=== PATIENT | male | born 1990 | race Caucasian/White ===

== ENCOUNTER 2019-09-19 18:38 | Emergency (ER) | payer BC ==
[~2019-09-19] VITALS: Ht 177.8 cm; Wt 111.0 kg
[2019-09-19 18:51] VITALS: BP 151/83
[2019-09-19] MEDS ORDERED: LIDOCAINE 1% PF 2 ML VIAL. INJ ONE (19:15)
[2019-09-19] MEDS ORDERED: AMOX1TAB61 PO (19:53)
--- NOTE | 2019-09-19 19:58 | PHYS DOC ---
Past Medical History Past Medical History: No Pertinent History Past Surgical History: No Surgical History Smoking Status: Never Smoker Alcohol Use: None General Adult EDM: Chief Complaint: ANIMAL BITE HPI: HPI: Patient is a 28 year old male presents for evaluation of dog bite to the face. Prior to arrival patient was playing with his friends stephanie in a pool. Bite was accidental unprovoked. Patient has laceration 1 cm above the upper lip and 2 cm below the lower lip both lacerations involve the lip. Patient states his tetanus is up-to-date. Patient states dogs immunizations are up-to-date. Review of Systems: Review of Systems: Constitutional: Denies fever or chills. [] Eyes: Denies change in visual acuity. [] HENT: Denies nasal congestion or sore throat. [] Respiratory: Denies cough or shortness of breath. [] Cardiovascular: Denies chest pain or edema. [] GI: Denies abdominal pain, nausea, vomiting, bloody stools or diarrhea. [] : Denies dysuria. [] Musculoskeletal: Denies back pain or joint pain. [] Integument: Positive laceration Neurologic: Denies headache, focal weakness or sensory changes. [] Endocrine: Denies polyuria or polydipsia. [] Lymphatic: Denies swollen glands. [] Psychiatric: Denies depression or anxiety. [] Heart Score: Risk Factors: Risk Factors: DM, Current or recent (<one month) smoker, HTN, HLP, family history of CAD, obesity. Risk Scores: Score 0 - 3: 2.5% MACE over next 6 weeks - Discharge Home Score 4 - 6: 20.3% MACE over next 6 weeks - Admit for Clinical Observation Score 7 - 10: 72.7% MACE over next 6 weeks - Early Invasive Strategies Current Medications: Current Medications Medications (Trade) Dose Ordered Sig/[place] Start Time Stop Time Status Last Admin Dose Admin Lidocaine HCl (Xylocaine-Mpf 1% 2ml Vial) 2 ml 1X ONCE 09/19/19 19:15 09/19/19 19:16 DC 09/19/19 19:18 2 ML Allergies: Allergies: Allergies Coded Allergies Type Severity Reaction Last Updated Verified No Known Drug Allergies 09/19/19 No Physical Exam: PE: Constitutional: Well developed, well nourished, no acute distress, non-toxic a ppearance. [] HENT: Normocephalic, atraumatic, bilateral external ears normal, oropharynx moist, no oral exudates, nose normal. [] Eyes: PERRLA, EOMI, conjunctiva normal, no discharge. [] Neck: Normal range of motion, no tenderness, supple, no stridor. [] Cardiovascular:Heart rate regular rhythm, no murmur [] Lungs & Thorax: Bilateral breath sounds clear to auscultation [] Abdomen: Bowel sounds normal, soft, no tenderness, no masses, no pulsatile masses. [] Skin: 1 cm laceration through and above the upper lip right of midline 2 cm laceration through and below the lip along the midline Back: No tenderness, no CVA tenderness. [] Extremities: No tenderness, no cyanosis, no clubbing, ROM intact, no edema. [] Neurologic: Alert and oriented X 3, normal motor function, normal sensory function, no focal deficits noted. [] Psychologic: Affect normal, judgement normal, mood normal. [] Current Patient Data: Vital Signs: Vital Signs Date Time Temp Pulse Resp B/P (MAP) Pulse Ox O2 Delivery O2 Flow Rate FiO2 09/19/19 18:51 98.6 84 16 151/83 (105) 97 Room Air 98.6 EKG: EKG: [] Radiology/Procedures: Radiology/Procedures: [] Course & Med Decision Making: Course & Med Decision Making Pertinent Labs and Imaging studies reviewed. (See chart for details) [] Due to the location of the laceration involving the lip and face gaping wound I discussed with the patient repair versus leaving wounds open. Laceration repair lidocaine 1% approximately 15 cc used for local anesthesia. Once anesthesia was achieved. Wound was cleaned with normal saline and Betadine. Both wounds were explored to a bloodless field no foreign bodies identified. Using six-point 0 nylon I placed a total of 4 simple interrupted sutures along the lower lip and face. 1 suture was placed in the lip to align the vermilion border. Using six-point 0 nylon I placed a total of 4 simple interrupted sutures along the upper lip laceration and face. 1 suture was placed in the lip to align the vermilion border. Patient tolerated procedure no complications.\ Patient will be discharged home on Augmentin. Patient advised to return in 5 to 7 days for suture removal. Patient given precautions regarding infection. Dragon Disclaimer: Dragon Disclaimer: This electronic medical record was generated, in whole or in part, using a voice recognition dictation system. Departure Departure Impression: Primary Impression: Dog bite Additional Impression: Dog bite of face Disposition: 01 HOME/RESIDENCE PRIOR TO ADM Condition: STABLE Patient Instructions: Animal Bite Additional Instructions: Sutures out in 5-7 days. Scripts Amoxicillin/Potassium Clav (AUGMENTIN 875-125 TABLET) 1 Each Tablet 1 TAB PO BID for 10 Days, #20 TAB 0 Refills Prov: CHRISTEN BLISS DO 09/19/19 Justicifation of Admission Dx: Justifications for Admission: Justification of Admission Dx: N/A CHRISTEN BLISS DO Sep 19, 2019 19:58
== END 2019-09-19 20:06 | disposition home or self-care (01) ==
LOC: ER 18:38
DX: S01.81XA Laceration without foreign body of other part of head, initial encounter (principal); S01.511A Laceration without foreign body of lip, initial encounter; W54.0XXA Bitten by dog, initial encounter; Y93.89 Activity, other specified; Y92.89 Other specified places as the place of occurrence of the external cause; Y99.8 Other external cause status
CPT/HCPCS: 12011; 40650; 99284; J3490